=== PATIENT | female | born 1960 | race Caucasian/White ===

== ENCOUNTER → 2016-12-26 18:15 | Outpatient (CLI) | payer BC | END | disposition home or self-care (01) | LOC: D.MAMMO 15:00 | DX: Z12.31 Encounter for screening mammogram for malignant neoplasm of breast (principal) ==

== ENCOUNTER 2018-11-14 08:00 | Outpatient (CLI) | payer BC | END 2018-11-14 23:59 | disposition home or self-care (01) | LOC: D.MAMMO 08:00 | PROVIDERS: ATTEND Family Medicine | DX: Z12.31 Encounter for screening mammogram for malignant neoplasm of breast (principal) ==

== ENCOUNTER 2018-12-03 14:00 | Outpatient (CLI) | payer BC | END 2018-12-03 14:30 | disposition home or self-care (01) | LOC: D.MAMMO 14:00 | PROVIDERS: ATTEND Family Medicine | DX: R92.8 Other abnormal and inconclusive findings on diagnostic imaging of breast (principal) ==

== ENCOUNTER 2019-08-03 01:45 | Emergency (ER) | payer BC ==
[~2019-08-03] VITALS: Ht 160 cm; Wt 61.4 kg
[2019-08-03 01:50] VITALS: Ht 160 cm; Wt 61.4 kg
[2019-08-03] MEDS ORDERED: VASOTEC5 MG (01:54)
[2019-08-03 02:11] LABS: BASOPHILS 0.2 % (0-2); EOSINOPHILS 0.9 % (0-7); HEMATOCRIT 42.4 % (36.0-48.0); IMMATURE GRANULOCYTES 0.2 % (0-5); LYMPHOCYTES 17.7 % (15-50); MEAN PLATELET VOLUME 9.4 fL (7.4-10.4); PLATELET COUNT 208 10x3/uL (130-400); RBC 4.66 10x6/uL (4.00-5.40); RDW 12.6 % (11.5-14.5); WBC 9.6 10x3/uL (4.8-10.8)
[2019-08-03 02:23] LABS: CALC OSMOLALITY 280 mosm/kg (275-300); CALCIUM 9.3 mg/dL (8.5-10.1); CHLORIDE - SERUM 105 mmol/L (98-107); GLUCOSE 121 mg/dL (74-106); POTASSIUM - SERUM 4.5 mmol/L (3.5-5.1); SODIUM 140 mmol/L (136-145); UREA NITROGEN 14 mg/dL (7-18); eGFR NON AFRICAN AMERICAN 60 mL/min (90-120)
[2019-08-03 02:25] LABS: BILIRUBIN NEGATIVE (NEGATIVE); GLUCOSE NEGATIVE (NEGATIVE); KETONE NEGATIVE (NEGATIVE); NITRITE NEGATIVE (NEGATIVE); SPECIFIC GRAVITY 1.015 (1.005-1.020); UROBILINOGEN NORMAL (NORMAL)
[2019-08-03 02:40] LABS: ALKALINE PHOSPHATASE 70 U/L (30-120); ALT (SGPT) 20 U/L (10-68); BILIRUBIN - TOTAL 0.47 mg/dL (0.2-1.3); CKMB 0.4 U/L (0.0-3.6); CREATINE KINASE 55 UL (21-215); PROTEIN - SERUM 6.9 g/dL (6.4-8.2); TROPONIN-I < 0.017 ng/mL (0.000-0.060)
[2019-08-03 03:52] VITALS: BP 136/79
== END 2019-08-03 03:52 | disposition home or self-care (01) ==
LOC: D.ER 01:45
PROVIDERS: Surgery
DX: R55 Syncope and collapse (principal); I10 Essential (primary) hypertension; R10.9 Unspecified abdominal pain; W18.11XA Fall from or off toilet without subsequent striking against object, initial encounter; Y93.9 Activity, unspecified; Y92.9 Unspecified place or not applicable; K58.1 Irritable bowel syndrome with constipation; R42 Dizziness and giddiness